=== PATIENT | male | born 1965 | race Caucasian/White ===

== ENCOUNTER 2017-03-10 02:25 | Emergency (ER) | payer OTHER ==
[~2017-03-10] VITALS: Ht 182.9 cm; Wt 81.7 kg
[2017-03-10 02:32] VITALS: BP 160/113
[2017-03-10] MEDS ORDERED: OMEPRAZOLE40 MG PO (02:34)
[2017-03-10] MEDS ORDERED: SIMVASTATIN40 MG PO (02:34)
[2017-03-10] MEDS ORDERED: ZPAK PO (02:38)
[2017-03-10] MEDS ORDERED: PERCOCET 5-3251 EACH PO (02:38)
[2017-03-10] MEDS ORDERED: ACYCLOVIR 800800 MG PO (02:38)
== END 2017-03-10 02:44 | disposition home or self-care (01) ==
LOC: M.ERS 02:25
DX: B02.9 Zoster without complications (principal); J06.9 Acute upper respiratory infection, unspecified; E78.00 Pure hypercholesterolemia, unspecified; K21.9 Gastro-esophageal reflux disease without esophagitis

== ENCOUNTER → 2017-05-22 | Outpatient (CLI) | payer OTHER ==
[~2017-05-22] MED LIST: ACYCLOVIR 800800 MG PO; OMEPRAZOLE40 MG PO; PERCOCET 5-3251 EACH PO; SIMVASTATIN40 MG PO; ZPAK PO
== END ==
LOC: M.MRI 13:03
DX: G44.229 Chronic tension-type headache, not intractable (principal); E55.9 Vitamin D deficiency, unspecified